=== PATIENT | female | born 1975 | race Caucasian/White ===

== ENCOUNTER 2016-08-27 20:32 | Emergency (ER) | payer MEDICAID ==
[~2016-08-27] VITALS: Ht 157.5 cm; Wt 91.5 kg
[2016-08-27 21:05] VITALS: Ht 157.5 cm; Wt 91.5 kg
[2016-08-27] MEDS ORDERED: KETOROLAC 30 MG INJ IV STA (22:20)
[2016-08-27] MEDS ORDERED: SOD CHLORIDE 0.9% 1,000 ML IV STA (22:20)
[2016-08-27] MEDS ORDERED: FAMOTIDINE 20 MG INJ IV STA (22:20)
[2016-08-27] MEDS ORDERED: ONDANSETRON 4 MG INJ IV STA (22:20)
[2016-08-27 22:53] LABS: ADD SCAN DIFF NO
[2016-08-27 22:55] LABS: BASOPHILS % 0.2 % (0.0-2.0); EOSINOPHILS # 0.2 10^3/ul (0.0-0.5); EOSINOPHILS % 2.8 % (0.0-7.0); HEMATOCRIT 37.8 % (37.0-47.0); HEMOGLOBIN 12.2 g/dl (12.0-16.0); LYMPHOCYTES # 3.1 10^3/ul (0.8-2.9); LYMPHOCYTES % 38.3 % (15.0-51.0); MEAN CORPUSCULAR HEMOGLOBIN 28.3 pg (29.0-33.0); MEAN CORPUSCULAR HGB CONC 32.3 g/dl (32.0-37.0); MEAN CORPUSCULAR VOLUME 87.7 fl (82.0-101.0); MEAN PLATELET VOLUME 9.6 fl (7.4-10.4); MONOCYTE # 0.8 10^3/ul (0.3-0.9); MONOCYTES % 9.5 % (0.0-11.0); NEUTROPHILS % 48.6 % (39.0-77.0); PLATELET COUNT 260 10^3/UL (140-415); RED BLOOD COUNT 4.31 10^6/ul (4.20-5.40); RED CELL DISTRIBUTION WIDTH 13.7 % (11.5-14.5); WHITE BLOOD COUNT 8.2 10^3/ul (4.8-10.8)
[2016-08-27 23:16] LABS: ADD UMIC YES; URINE BILIRUBIN (Dip) NEGATIVE (NEGATIVE); URINE BLOOD (Dip) 1+ (NEGATIVE); URINE COLOR LT. YELLOW (YELLOW); URINE GLUCOSE (Dip) NEGATIVE (NEGATIVE); URINE KETONES (Dip) NEGATIVE (NEGATIVE); URINE LEUKOCYTE ESTERASE (Dip) 2+ (NEGATIVE); URINE NITRITE (Dip) NEGATIVE (NEGATIVE); URINE TOTAL PROTEIN (Dip) NEGATIVE (NEGATIVE); URINE UROBILINOGEN (Dip) 0.2 E.U./dL (0.1-1.0)
[2016-08-27] MEDS ORDERED: morphine 4 MG/ML VIAL IV STA (23:17)
[2016-08-27 23:27] LABS: ALBUMIN 4.2 g/dl (3.3-4.9); ALBUMIN/GLOBULIN RATIO 1.23; BILIRUBIN,INDIRECT 0.1 mg/dl (0-1.1); BILIRUBIN,TOTAL 0.1 mg/dl (0.2-1.3); CALCIUM 9.6 mg/dl (8.4-10.2); CREATININE 0.75 mg/dl (0.44-1.00); POTASSIUM 3.9 mmol/L (3.5-5.1); TOTAL PROTEIN 7.6 g/dl (6.1-8.1)
[2016-08-27 23:46] LABS: SQUAMOUS EPITHELIAL CELL,UR MODERATE
[2016-08-27 23:48] LABS: BACTERIA,URINE FEW
[2016-08-28] MEDS ORDERED: CEFTRIAXONE 1 GM/50 ML (PMX) 50 ML IVPB ONE (00:30)
--- NOTE | 2016-08-28 01:14 | RADRPT ---
PROCEDURE: CT Abdomen and pelvis without contrast. CLINICAL INDICATION: Abdominal pain. TECHNIQUE: CT scan of the abdomen and pelvis was performed on a multi-detector high-resolution CT scanner. Contiguous axial images were obtained from the lung bases to the ischial tuberosities wit hout intravenous contrast. Coronal and sagittal reformatted images were also obtained. Images were reviewed on the PACS workstation. One or more of the following dose reduction techniques were used: - Automated exposure control. - Adjustment of the mA and/or kV according to patient size. - Use of iterative reconstruction technique. Exam CTD/vol = 19.74 mGy. Total exam DLP = 1113.92 mGy-cm. COMPARISON: None. FINDINGS: Evaluation of the lung bases demonstrates no pleural or parenchymal disease. Abdomen: The liver is normal in size. There is no focal mass or dilatation of the biliary tree. T he gallbladder is not distended. The spleen, pancreas and bilateral adrenal glands are within vincent l limits. Bilateral kidneys are normal in size with no contour deforming mass identified. There is no radiopaque renal or ureteral calculus identified. There is no hydronephrosis or hydroureter. T here is no retroperitoneal adenopathy. The abdominal aorta is of normal caliber. There is no abnormal bowel wall thickening or distension. There is no bowel obstruction or free air . A normal appendix is identified. There is no diverticulosis or diverticulitis. There is no asci tiera. Pelvis: The bladder is unremarkable. The uterus and adnexa are within normal limits. There is no significant pelvic adenopathy or free fluid. Evaluation of the osseous structures demonstrates no suspicious lytic or blastic lesion. IMPRESSION: No acute abnormality identified within the abdomen and pelvis. .Murphy Conner MD, MD Date Time Electronically viewed and signed by .Murphy Conner MD, MD on 08/28/2016 01:14 .T/
--- NOTE | 2016-08-28 01:18 | ERD ---
ER Documentation Chief Complaint Date/Time DATE: 08/28/16 TIME: 01:16 Chief Complaint llq ap 8/10 x 3 days with nausea HPI This is a 40-year-old female who presents to the emergency room for evaluation of abdominal pain for the past 3 days. The patient states that she is also feeling nauseous. She localizes the abdominal pain to the left portion of abdomen and describes as achy pain with with no aggravating or relieving factors. The patient denies any diarrhea or fevers associated with this. She states she was nauseous but denies any vomiting. The patient came to the ER for evaluation per ROS All systems reviewed and are negative except as per history of present illness. Medications Home Meds No Active Prescriptions or Reported Meds Allergies Allergies: Coded Allergies: No Known Drug Allergy (Verified Allergy, Unknown, 08/27/16) PMhx/Soc Medical and Surgical Hx: pt denies Medical Hx, pt denies Surgical Hx Hx Alcohol Use: No Hx Substance Use: No Hx Tobacco Use: No Physical Exam Vitals Vital Signs Date Time Temp Pulse Resp B/P Pulse Ox O2 Delivery O2 Flow Rate FiO2 08/27/16 23:56 98.2 71 16 115/70 100 Room Air 08/27/16 21:05 99.2 66 17 127/80 100 Physical Exam INITIAL VITAL SIGNS: Reviewed by me GENERAL: The patient is well developed and appropriate for usual state of health in no apparent distress HEENT: Pupils equal, round, and reactive to light. EOMI. There is no scleral icterus. NECK: C-spine is soft and supple, there is no meningismus. There is no cervical lymphadenopathy. LUNGS: Clear to auscultation bilaterally. There are no rales, wheezes or rhonchi. HEART: Regular rate and rhythm, no murmurs, clicks, rubs or gallops. ABDOMEN: Tender to palpation in the left lower quadrant, otherwise soft, non- tender, non-distended. There are bowel sounds in all four quadrants. No rebound or guarding. EXTREMITIES: There is no peripheral cyanosis or edema. No focal swelling or erythema. NEUROLOGICAL: The patient moves all four extremities with 5/5 strength. Cranial nerves II - XII are intact. Normal gait. Alert and oriented SKIN: There is no apparent rash or petechiae. HEME/LYMPHATIC: There is no evidence of excessive bruising or lymphedema. PSYCHIATRIC: The patient does not appear anxious or depressed. Result Diagram: 08/27/16222908/27/162229 Results 24 hrs Laboratory Tests Test 08/27/16 22:30 White Blood Count 8.210^3/ul Red Blood Count 4.3110^6/ul Hemoglobin 12.2g/dl Hematocrit 37.8% Mean Corpuscular Volume 87.7fl Mean Corpuscular Hemoglobin 28.3pg Mean Corpuscular Hemoglobin Concent 32.3g/dl Red Cell Distribution Width 13.7% Platelet Count 85298^3/UL Mean Platelet Volume 9.6fl Neutrophils % 48.6% Lymphocytes % 38.3% Monocytes % 9.5% Eosinophils % 2.8% Basophils % 0.2% Nucleated Red Blood Cells % 0.0/100WBC Neutrophils # 4.010^3/ul Lymphocytes # 3.110^3/ul Monocytes # 0.810^3/ul Eosinophils # 0.210^3/ul Basophils # 0.010^3/ul Nucleated Red Blood Cells # 0.010^3/ul Urine Color LT. YELLOW Urine Clarity CLEAR Urine pH 6.5 Urine Specific Kremlin 1.020 Urine Ketones NEGATIVE Urine Nitrite NEGATIVE Urine Bilirubin NEGATIVE Urine Urobilinogen 0.2 E.U./dL Urine Leukocyte Esterase 2+ Urine Microscopic RBC 5-10/HPF Urine Microscopic WBC 10-25/HPF Urine Squamous Epithelial Cells MODERATE Urine Bacteria FEW Urine Yeast FEW Urine Hemoglobin 1+ Urine Glucose NEGATIVE% Urine Total Protein NEGATIVE Sodium Level 136mmol/L Potassium Level 3.9mmol/L Chloride Level 102mmol/L Carbon Dioxide Level 26mmol/L Anion Gap 12 Blood Urea Nitrogen 17mg/dl Creatinine 0.75mg/dl Glucose Level 100mg/dl Calcium Level 9.6mg/dl Total Bilirubin 0.1mg/dl Direct Bilirubin 0.00mg/dl Indirect Bilirubin 0.1mg/dl Aspartate Amino Transf (AST/SGOT) 30IU/L Alanine Aminotransferase (ALT/SGPT) 43IU/L Alkaline Phosphatase 77IU/L Total Protein 7.6g/dl Albumin 4.2g/dl Globulin 3.40g/dl Albumin/Globulin Ratio 1.23 Lipase 131U/L Current Medications Medications (Trade) Dose Ordered Sig/Mikala Route PRN Reason Start Time Stop Time Status Last Admin Dose Admin Sodium Chloride (NS) 1,000 ml @ 1,000 mls/hr Q1H STAT IV 08/27/16 22:20 08/27/16 23:19 DC 08/27/16 22:40 Ondansetron HCl (Zofran Inj) 4 mg ONCE STAT IV 08/27/16 22:20 08/27/16 22:21 DC 08/27/16 22:40 Famotidine (Pepcid Iv) 20 mg ONCE STAT IV 08/27/16 22:20 08/27/16 22:21 DC 08/27/16 22:40 Ketorolac Tromethamine (Toradol) 30 mg ONCE STAT IV 08/27/16 22:20 08/27/16 22:21 DC 08/27/16 22:40 Morphine Sulfate 4 mg 4 mg ONCE STAT IV 08/27/16 23:17 08/27/16 23:18 DC 08/27/16 23:47 Ceftriaxone Sodium (Rocephin) 50 ml @ 100 mls/hr ONCE ONCE IVPB 08/28/16 00:30 08/28/16 00:59 DC 08/28/16 00:54 Procedures/MDM CT abdomen pelvis without: No acute abnormality identified within the abdomen and pelvis. This 40-year-old female presents to the emergency room for evaluation of abdominal pain. When I evaluated her she did have pain in the left lower quadrant of the abdomen. Lab work was obtained including a urinalysis. The patient was afebrile when I evaluated her and I did obtain lab work which was normal. Urinalysis does show positive leukocyte esterase. CT of the abdomen and pelvis was also obtained which does not show any acute intra-abdominal pathology. The patient was given Toradol morphine for pain control. She was given 1 g of Rocephin for acute cystitis. The patient states that she is feeling better at this time. She will be discharged home at this time with a prescription for ciprofloxacin for acute cystitis. Differential diagnoses entertained was broad with potential high acuity. Patient has been evaluated for appendicitis, cholecystitis, and other high risk medical and surgical causes of abdominal pain. Ultimately the patient's evaluation is nondiagnostic. Based on the patient's lack of risk factors, as well as the patient's clinical, laboratory, and imaging data, the patient appears to be low risk for these high risk causes of abdominal pain. Departure Diagnosis: Primary Impression: Abdominal pain Additional Impression: UTI (urinary tract infection) Condition: Stable ZECHARIAH ORTA DO August 28, 2016 01:18
[2016-08-28] MEDS ORDERED: CIPR500T4 PO (01:19)
[2016-08-28 01:27] VITALS: BP 114/76; PULSE 67; RESP 16; TEMP 98.2
== END 2016-08-28 01:27 | disposition home or self-care (01) ==
LOC: FTE 20:32 → E/R 08-28 01:27
DX: R10.9 Unspecified abdominal pain (principal); N39.0 Urinary tract infection, site not specified
CPT/HCPCS: 36415; 74176; 80053; 81001; 81003; 83690; 85025; 96374; 96375; J0696; J1885; J2270; J2405; J7030; Z7502; Z7610

== ENCOUNTER 2017-04-07 20:31 | Emergency (ER) | payer MEDICAID ==
[~2017-04-07] VITALS: Ht 162.6 cm; Wt 89.7 kg
[~2017-04-07 20:31] MED LIST: CIPR500T4 PO
[2017-04-07 20:38] VITALS: Ht 162.6 cm; Wt 89.7 kg
[2017-04-08] MEDS ORDERED: ONDANSETRON (ODT) 4 MG TAB ODT STA (01:29)
[2017-04-08] MEDS ORDERED: LIDOCAINE/MYLANTA 40 ML BTL PO ONE (01:30)
--- NOTE | 2017-04-08 01:32 | ERD ---
ER Documentation Chief Complaint Chief Complaint left sided abd pain x3 days HPI 41-year-old female who presents emergency department for left-sided abdominal pain for 3 days. Denies headache, dizziness, blurry vision, neck pain, shoulder pain, chest pain, back pain, nausea, vomiting, diarrhea, constipation, loss of bowel bladder control, or possibility , urinary symptoms, vaginal bleeding or vaginal discharge, being sexually active, recent long travel, recent travel, recent antibiotic use in the last 3 months, recent exposure to any illness, fever, chills, difficulty walking. LMP: 3 weeks ago. A0. ROS All systems reviewed and are negative except as per history of present illness. Medications Home Meds Active Scripts Acetaminophen* (Tylophen*) 500 Mg Capsule, 1 CAP PO Q6H Y for PAIN AND OR ELEVATED TEMP, #20 CAP Prov:BLAINEANNA Mead 04/08/17 Ondansetron Hcl* (Zofran*) 4 Mg Tablet, 4 MG PO Q8H Y for NAUSEA AND/OR VOMITING , #30 TAB Prov:BLAINEANNA Mead 04/08/17 Famotidine* (Pepcid*) 20 Mg Tablet, 40 MG PO DAILY for 30 Days, TAB Prov:TERESAILABANANNA F 04/08/17 Ciprofloxacin Hcl* (Ciprofloxacin Hcl*) 500 Mg Tablet, 500 MG PO BID for 7 Days , TAB Prov:ZECHARIAH ORTA DO 08/28/16 Allergies Allergies: Coded Allergies: No Known Drug Allergy (Verified Allergy, Unknown, 08/27/16) PMhx/Soc Medical and Surgical Hx: pt denies Medical Hx, pt denies Surgical Hx Hx Alcohol Use: No Hx Substance Use: No Hx Tobacco Use: No Physical Exam Vitals Vital Signs Date Time Temp Pulse Resp B/P Pulse Ox O2 Delivery O2 Flow Rate FiO2 04/08/17 04:29 98.1 64 20 119/79 100 Room Air 04/07/17 20:38 98.7 84 20 131/76 99 Physical Exam Const: Well-appearing. Not in respiratory or acute distress. Head: Atraumatic Eyes: Normal Conjunctiva ENT: Normal External Ears, Nose and Mouth. Neck: Full range of motion..~ No meningismus. Resp: Clear to auscultation bilaterally Cardio: Regular rate and rhythm, no murmurs Abd: Soft, non tender, non distended. Normal bowel sounds. There is no right upper/right lower/epigastric/left upper/left lower abdominal tenderness on light and deep palpation. Able to jump 10 times without developing abdominal pain. Negative on Rovsing sign. Negative on psoas sign. Negative on Hugo sign (she will check test). Skin: No petechiae or rashes Back: No midline or flank tenderness Ext: No cyanosis, or edema Neur: Awake and alert Psych: Normal Mood and Affect Result Diagram: 04/08/1713904/08/17 014 Results 24 hrs Laboratory Tests Test 04/08/17 01:40 White Blood Count 8.710^3/ul Red Blood Count 4.5510^6/ul Hemoglobin 12.9g/dl Hematocrit 38.0% Mean Corpuscular Volume 83.5fl Mean Corpuscular Hemoglobin 28.4pg Mean Corpuscular Hemoglobin Concent 33.9g/dl Red Cell Distribution Width 13.8% Platelet Count 11420^3/UL Mean Platelet Volume 9.3fl Neutrophils % 53.8% Lymphocytes % 35.8% Monocytes % 7.4% Eosinophils % 2.0% Basophils % 0.3% Nucleated Red Blood Cells % 0.0/100WBC Neutrophils # 4.710^3/ul Lymphocytes # 3.110^3/ul Monocytes # 0.610^3/ul Eosinophils # 0.210^3/ul Basophils # 0.010^3/ul Nucleated Red Blood Cells # 0.010^3/ul Urine Color COLORLESS Urine Clarity CLEAR Urine pH 6.0 Urine Specific Gibson 1.004 Urine Ketones NEGATIVEmg/dL Urine Nitrite NEGATIVEmg/dL Urine Bilirubin NEGATIVEmg/dL Urine Urobilinogen NEGATIVEmg/dL Urine Leukocyte Esterase NEGATIVELeu/ul Urine Hemoglobin NEGATIVEmg/dL Urine Glucose NEGATIVEmg/dL Urine Total Protein NEGATIVEmg/dl Sodium Level 140mmol/L Potassium Level 3.6mmol/L Chloride Level 101mmol/L Carbon Dioxide Level 28mmol/L Anion Gap 15 Blood Urea Nitrogen 12mg/dl Creatinine 0.66mg/dl Glucose Level 95mg/dl Calcium Level 8.9mg/dl Total Bilirubin 0.3mg/dl Direct Bilirubin 0.00mg/dl Indirect Bilirubin 0.3mg/dl Aspartate Amino Transf (AST/SGOT) 39IU/L Alanine Aminotransferase (ALT/SGPT) 51IU/L Alkaline Phosphatase 86IU/L Total Protein 8.0g/dl Albumin 4.2g/dl Globulin 3.80g/dl Albumin/Globulin Ratio 1.10 Amylase Level 84U/L Lipase 128U/L Serum HCG, Qualitative NEGATIVE Current Medications Medications (Trade) Dose Ordered Sig/Mikala Route PRN Reason Start Time Stop Time Status Last Admin Dose Admin Ondansetron HCl (Zofran Odt) 4 mg ONCE STAT ODT 04/08/17 01:29 04/08/17 01:32 DC 04/08/17 01:45 Miscellaneous Medication (Gi Cocktail (2)) 40 ml ONCE ONCE PO 04/08/17 01:30 04/08/17 01:32 DC 04/08/17 01:45 Procedures/MDM Treatment: Zofran ODT. GI cocktail. ED p.o. challenge. Reevaluation: Patient stated that she feels much better this time. Denies headache, neck pain, shoulder pain, chest pain, back pain, abdominal pain. There is no right upper/right lower/epigastric/left upper/left lower abdominal tenderness and light and palpation. Negative on Rovsing sign. Negative on psoas sign. Negative on Hagan sign (heel jar test). No CVA tenderness. Able to jump 5 times without developing abdominal pain. Blood works: Negative. Urinalysis: Negative. Serum : Negative. Differential diagnosis: I have low suspicion for pancreatitis, diverticulitis, appendicitis, abdominal aortic aneurysm due to patient's physical exam that there is no abdominal tenderness and patient's description of pain is not likely I aortic aneurysm Final diagnosis: Gastritis. Prescription: Zofran. Pepcid. Tylenol. Follow-up with PCP in the next 3-4 days. Come back here in the emergency department for any new symptoms or any worsening of symptoms. All questions and concerns are answered. Patient verbalized understanding and agreed with the plan of care. Hemodynamically stable on discharge. Departure Diagnosis: Primary Impression: Gastritis Condition: Stable Additional Instructions: Follow-up with PCP in the next 3-4 days. Come back here in the emergency department for any new symptoms or any worsening of symptoms. All questions and concerns are answered. Patient verbalized understanding and agreed with the plan of care. ANNA VALLADARES Apr 08, 2017 01:32
[2017-04-08 02:18] LABS: BASOPHILS % 0.3 % (0.0-2.0); EOSINOPHILS # 0.2 10^3/ul (0.0-0.5); HEMOGLOBIN 12.9 g/dl (12.0-16.0); LYMPHOCYTES # 3.1 10^3/ul (0.8-2.9); LYMPHOCYTES % 35.8 % (15.0-51.0); MEAN CORPUSCULAR HEMOGLOBIN 28.4 pg (29.0-33.0); MEAN CORPUSCULAR HGB CONC 33.9 g/dl (32.0-37.0); MEAN CORPUSCULAR VOLUME 83.5 fl (82.0-101.0); MEAN PLATELET VOLUME 9.3 fl (7.4-10.4); MONOCYTE # 0.6 10^3/ul (0.3-0.9); MONOCYTES % 7.4 % (0.0-11.0); NEUTROPHIL # 4.7 10^3/ul (1.6-7.5); NEUTROPHILS % 53.8 % (39.0-77.0); PLATELET COUNT 272 10^3/UL (140-415); RED BLOOD COUNT 4.55 10^6/ul (4.20-5.40); RED CELL DISTRIBUTION WIDTH 13.8 % (11.5-14.5); WHITE BLOOD COUNT 8.7 10^3/ul (4.8-10.8)
[2017-04-08 02:42] LABS: ALBUMIN 4.2 g/dl (3.3-4.9); ALBUMIN/GLOBULIN RATIO 1.1; BILIRUBIN,INDIRECT 0.3 mg/dl (0-1.1); BILIRUBIN,TOTAL 0.3 mg/dl (0.2-1.3); CALCIUM 8.9 mg/dl (8.4-10.2); CREATININE 0.66 mg/dl (0.44-1.00); POTASSIUM 3.6 mmol/L (3.5-5.1)
[2017-04-08 02:48] LABS: ADD UMIC NO; UR ASCORBIC ACID NEGATIVE (NEGATIVE); UR BILIRUBIN (Dip) NEGATIVE (NEGATIVE); UR BLOOD (Dip) NEGATIVE (NEGATIVE); UR CLARITY CLEAR (CLEAR); UR COLOR COLORLESS (YELLOW); UR GLUCOSE (Dip) NEGATIVE (NEGATIVE); UR KETONES (Dip) NEGATIVE (NEGATIVE); UR LEUKOCYTE ESTERASE (Dip) NEGATIVE Leu/ul (NEGATIVE); UR NITRITE (Dip) NEGATIVE (NEGATIVE); UR SPECIFIC GRAVITY (Dip) 1.004 (1.003-1.030); UR TOTAL PROTEIN (Dip) NEGATIVE (NEGATIVE); UR UROBILINOGEN (Dip) NEGATIVE (NEGATIVE)
[2017-04-08] MEDS ORDERED: FAMO-96 PO (04:16)
[2017-04-08] MEDS ORDERED: ACET500C5 PO (04:17)
[2017-04-08] MEDS ORDERED: ONDA4TAB8 PO (04:17)
[2017-04-08 04:29] VITALS: BP 119/79; PULSE 64; RESP 20; TEMP 98.1
== END 2017-04-08 04:30 | disposition home or self-care (01) ==
LOC: FTE 20:31
DX: K29.70 Gastritis, unspecified, without bleeding (principal)
CPT/HCPCS: 80053; 81003; 82150; 83690; 84703; 85025; Z7502; Z7610; 99283

== ENCOUNTER 2018-11-17 22:24 | Emergency (ER) | payer MEDICAID ==
[~2018-11-17] VITALS: Ht 162.6 cm; Wt 99.2 kg
[~2018-11-17 22:24] MED LIST changes: +ACET325T33 PO; +ACET500C5 PO; +BACL10TA PO; +FAMO-96 PO; +IBUP-1542 PO; +MED4DP PO; +ONDA4TAB8 PO
[2018-11-17 22:34] VITALS: Ht 162.6 cm; Wt 99.2 kg
[2018-11-18] MEDS ORDERED: KETOROLAC 30 MG INJ IM STA (00:04)
--- NOTE | 2018-11-18 01:17 | ERD ---
ER Documentation Chief Complaint Chief Complaint bilaterial rib pain radiating to upper back x 2 months HPI 42-year-old female presented to ED for bilateral rib pain radiating to her back x2 months. Patient denies any allergies to medications. Patient states this issue has been on and off and cannot pinpoint any triggering factors. Patient denies any traumatic injury. Patient denies shortness of breath. Patient is most concerned that something is going on with her heart. Patient denies fever chills night sweats nausea vomiting. Patient states the pain is off and on and rates it a 5 out of 10. ROS All systems reviewed and are negative except as per history of present illness. Medications Home Meds Active Scripts Methylprednisolone* (Medrol* DOSE PACK) 4 Mg/Dose-Pack Tab.ds.pk, 4 MG PO . DIRECTED for 7 Days, PACKET Prov:BON ENCARNACION PA-C 11/18/18 Ibuprofen* (Motrin*) 600 Mg Tab, 600 MG PO Q6, #30 TAB Prov:BON ENCARNACION PA-C 11/18/18 Acetaminophen* (Tylophen*) 500 Mg Capsule, 1 CAP PO Q6H PRN for PAIN AND OR ELEVATED TEMP, #20 CAP Prov:ANNA VALLADARES 04/08/17 Ondansetron Hcl* (Zofran*) 4 Mg Tablet, 4 MG PO Q8H PRN for NAUSEA AND/OR VOMITING, #30 TAB Prov:ANNA VALLADARES 04/08/17 Famotidine* (Pepcid*) 20 Mg Tablet, 40 MG PO DAILY for 30 Days, TAB Prov:ANNA VALLADARES 04/08/17 Ciprofloxacin Hcl* (Ciprofloxacin Hcl*) 500 Mg Tablet, 500 MG PO BID for 7 Days, TAB Prov:ZECHARIAH ORTA DO 08/28/16 Allergies Allergies: Coded Allergies: No Known Drug Allergy (Verified Allergy, Unknown, 08/27/16) PMhx/Soc History of Surgery: Yes (tonsillectomy) Hx Alcohol Use: No Hx Substance Use: No Hx Tobacco Use: No Smoking Status: Never smoker FmHx Family History: No diabetes, No coronary disease, No other Physical Exam Vitals Vital Signs Date Temp Pulse Resp B/P (MAP) Pulse Ox O2 O2 Flow FiO2 Time Delivery Rate 11/17/18 99.0 81 18 131/75 100 22:34 (93) Physical Exam GENERAL: The patient is well-appearing, well-nourished, in no acute distress HEENT: Atraumatic. Conjunctivae are pink. Pupils equal, round, and reactive to light. There is no scleral icterus. Tympanic membranes clear bilaterally. Oropharynx clear. No nystagmus or photophobia. NECK: C-spine is soft and supple. There is no meningismus. There is no cervical lymphadenopathy. CHEST: Clear to auscultation bilaterally. There are no rales, wheezes or rhonchi. Pain cannot be reproduced with palpation HEART: Regular rate and rhythm. No murmurs, clicks, rubs or gallops. ABDOMEN:Soft, nontender and nondistended. Good bowel sounds. No rebound or guarding. No gross peritonitis. No gross organomegaly or masses. No Dailey sign or McBurney point tenderness. BACK: No midline or flank tenderness. EXTREMITIES: Equal pulses bilaterally. There is no peripheral clubbing, cyanosis or edema. No focal swelling or erythema. Full range of motion. Grossly neurovascularly intact. Results 24 hrs Laboratory Tests Test 11/18/18 00:40 POC Beta HCG, Qualitative NEGATIVE Current Medications Medications Dose Sig/Mikala Start Time Status Last (Trade) Ordered Route PRN Stop Time Admin Dose Reason Admin Ketorolac 30 mg ONCE STAT 11/18/18 DC 11/18/18 Tromethamine IM 00:04 00:45 (Toradol) 11/18/18 00:05 Procedures/MDM ED course: The patient was stable throughout the ED course. The patient and/or family informed of laboratory and diagnostic imaging results throughout the ED course. EKG: Read by Dr. Zavaleta attending physician. EKG shows normal sinus rhythm at rate of 76 No arrhythmias, acute ST elevations or T wave changes were noted. Diagnostic imaging: Read by radiologist Murphy Conner MD, PROCEDURE: Chest. CLINICAL INDICATION: Chest pain. TECHNIQUE: PA and Lateral views of the chest were obtained. COMPARISON: None. FINDINGS: The cardiac silhouette is within normal limits. The aortic arch is unremarkable. There is no focal consolidation, vascular congestion or pleural effusion. There is no pneumothorax. The osseous structures are grossly intact. IMPRESSION: No acute cardiopulmonary process identified. Medications given in ER: Toradol Patient tolerated medication well with no adverse reactions. Patient reported improvement in pain. Medical decision makin-year-old female presenting to the ED for bilateral rib pain x2 months. Patient states the pain comes and goes and she cannot pinpoint any aggravating factors. Patient denies allergies to medications. Patient's physical exam was unremarkable. Patient's vitals were stable and O2 sats 100%. Patient denies s hortness of breath. Patient's EKG and chest x-ray was unremarkable. Patient had no right upper quadrant tenderness with negative Dailey sign. The patient denies dysuria or urinary symptoms. Patient states she recently was treated for UTI and no longer has symptoms. At this time I have low suspicion for acute IA, pneumonia, cholecystitis, Choledocholithiases, kidney stones, pyelonephritis, UTI. Patient remained afebrile and stable during her entire visit ED. The patient was given Toradol and on upon reexamination the patient appears to be doing much better. I advised the patient if symptoms worsen return to ER immediately otherwise she should follow-up with her primary care provider in 1 to 2 days regarding this visit. Patient is in agreement treatment plan and all questions were answered upon discharge Prescription for home: Motrin I have discussed with the patient proper use and common side effects to expert with the medication . I advised the patient/family to speak with the pharmacist dispensing the medication to be advised of any potential drug interactions with other medication or supplements they may be taking. Discharge: At this time, patient is stable for discharge and outpatient management. I have instructed the patient to follow-up with his\her primary care physician in 1 to 2 days. I have discussed with the patient the possibility of needing to see a specialist for further work-up and imaging studies if symptoms persist. I have instructed the patient to promptly return to the ER for any new or worsening symptoms including increased pain, fever, nausea, vomiting, weakness or LOC. The patient and\or family expressed understanding of and agreement with this plan. All questions were answered. Home care instructions were provided. Disclaimer: Inadvertent spelling and grammatical errors are likely due to EHR\dictation software use and do not reflect on the overall quality of patient care. Also, please note that the electronic time recorded on the note does not necessarily reflect the actual time of the patient encounter. Departure Diagnosis: Primary Impression: Rib pain Condition: Stable Patient Instructions: Rib Contusion Referrals: COMMUNITY CLINICS YOU HAVE RECEIVED A MEDICAL SCREENING EXAM AND THE RESULTS INDICATE THAT YOU DO NOT HAVE A CONDITION THAT REQUIRES URGENT TREATMENT IN THE EMERGENCY DEPARTMENT. FURTHER EVALUATION AND TREATMENT OF YOUR CONDITION CAN WAIT UNTIL YOU ARE SEEN IN YOUR DOCTORS OFFICE WITHIN THE NEXT 1-2 DAYS. IT IS YOUR RESPONSIBILITY TO MAKE AN APPOINTMENT FOR FOLOW-UP CARE. IF YOU HAVE A PRIMARY DOCTOR --you should call your primary doctor and schedule an appointment IF YOU DO NOT HAVE A PRIMARY DOCTOR YOU CAN CALL OUR PHYSICIAN REFERRAL HOTLINE AT IF YOU CAN NOT AFFORD TO SEE A PHYSICIAN YOU CAN CHOSE FROM THE FOLLOWING [facility] CLINICS [facility] [address] [facility] [address] [facility] [address] [facility] [address] [facility] [address] [facility] [facility] [address] [facility] [facility] [facility]. [facility] YOU HAVE RECEIVED A MEDICAL SCREENING EXAM AND THE RESULTS INDICATE THAT YOU DO NOT HAVE A CONDITION THAT REQUIRES URGENT TREATMENT IN THE EMERGENCY DEPARTMENT. FURTHER EVALUATION AND TREATMENT OF YOUR CONDITION CAN WAIT UNTIL YOU ARE SEEN IN YOUR DOCTORS OFFICE WITHIN THE NEXT 1-2 DAYS. IT IS YOUR RESPONSIBILITY TO MAKE AN APPOINTMENT FOR FOLOW-UP CARE. IF YOU HAVE A PRIMARY DOCTOR --you should call your primary doctor and schedule and appointment IF YOU DO NOT HAVE A PRIMARY DOCTOR YOU CAN CALL OUR PHYSICIAN REFERRAL HOTLINE AT . IF YOU CAN NOT AFFORD TO SEE A PHYSICIAN YOU CAN CHOSE FROM THE FOLLOWING [facility]: [facility] [place] [address] [place] [address] [facility] [address] [place] [address] FOR[facility]LY [facility] + [facility] [address] [place] [address] Additional Instructions: Call your primary care doctor TOMORROW for an appointment during the next 1-2 da ys.See the doctor sooner or return here if your condition worsens before your appointment time. BON ENCARNACION PA-C Nov 18, 2018 01:17
[2018-11-18 01:18] VITALS: BP 113/72; PULSE 76; RESP 18
== END 2018-11-18 01:19 | disposition home or self-care (01) ==
LOC: FTE 22:24
DX: R07.81 Pleurodynia (principal)
CPT/HCPCS: 71046; 81025; 93005; 96372; J1885; Z7502

== ENCOUNTER 2018-12-01 15:05 | Emergency (ER) | payer MEDICAID ==
[~2018-12-01] VITALS: Ht 162.6 cm; Wt 96.9 kg
[2018-12-01 15:08] VITALS: BP 117/74; PULSE 87; RESP 18; Ht 162.6 cm; Wt 96.9 kg
[2018-12-01] MEDS ORDERED: KETOROLAC 30 MG INJ IM STA (15:49)
--- NOTE | 2018-12-01 15:51 | ERD ---
ER Documentation Chief Complaint Chief Complaint left leg pain x 1 week; no injury HPI 42-year-old female, previously healthy, presents to the emergency department, complaining of 1 week with worsening of left leg pain. The patient reports a history of a mechanical fall 6 months ago. The patient denies fever, no chills, no rashes, no recent trauma. The pain is dull, intermittent, 6/10. The patient has been taking Tylenol with mild improvement of the symptoms. ROS All systems reviewed and are negative except as per history of present illness. Medications Home Meds Active Scripts Baclofen* (Baclofen*) 10 Mg Tablet, 10 MG PO QHS, #10 TAB Prov:AVERY TAYLOR MD 12/01/18 Acetaminophen* (Tylenol*) 325 Mg Tablet, 2 TAB PO Q6 PRN for PAIN AND OR ELEVATED TEMP, #20 TAB Prov:AVERY TAYLOR MD 12/01/18 Ibuprofen* (Motrin*) 600 Mg Tab, 600 MG PO TID PRN for PAIN AND OR ELEVATED TEMP, #20 TAB Prov:AVERY TAYLOR MD 12/01/18 Methylprednisolone* (Medrol* DOSE PACK) 4 Mg/Dose-Pack Tab.ds.pk, 4 MG PO . DIRECTED for 7 Days, PACKET Prov:BON ENCARNACION PA-C 11/18/18 Ibuprofen* (Motrin*) 600 Mg Tab, 600 MG PO Q6, #30 TAB Prov:BON ENCARNACION PA-C 11/18/18 Acetaminophen* (Tylophen*) 500 Mg Capsule, 1 CAP PO Q6H PRN for PAIN AND OR ELEVATED TEMP, #20 CAP Prov:ANNA VALLADARES 04/08/17 Ondansetron Hcl* (Zofran*) 4 Mg Tablet, 4 MG PO Q8H PRN for NAUSEA AND/OR VOMITING, #30 TAB Prov:ANNA VALLADARES 04/08/17 Famotidine* (Pepcid*) 20 Mg Tablet, 40 MG PO DAILY for 30 Days, TAB Prov:ANNA VALLADARES 04/08/17 Ciprofloxacin Hcl* (Ciprofloxacin Hcl*) 500 Mg Tablet, 500 MG PO BID for 7 Days, TAB Prov:ZECHARIAH ORTA DO 08/28/16 Allergies Allergies: Coded Allergies: No Known Drug Allergy (Verified Allergy, Unknown, 08/27/16) PMhx/Soc History of Surgery: Yes (tonsillectomy) Hx Alcohol Use: No Hx Substance Use: No Hx Tobacco Use: No Smoking Status: Unknown if ever smoked FmHx Family History: No diabetes, No coronary disease Physical Exam Vitals Vital Signs Date Temp Pulse Resp B/P (MAP) Pulse Ox O2 O2 Flow FiO2 Time Delivery Rate 12/01/18 99.1 87 18 117/74 99 15:08 (88) Physical Exam Const: No acute distress Head: Atraumatic Eyes: Normal Conjunctiva ENT: Normal External Ears, Nose and Mouth. Neck: Full range of motion. No meningismus. Resp: Clear to auscultation bilaterally Cardio: Regular rate and rhythm, no murmurs Abd: Soft, non tender, non distended. Normal bowel sounds Skin: No petechiae or rashes Back: No midline or flank tenderness Ext: Left lower extremity: Normal inspection, full range of motion, no edema, no rashes, no cyanosis Neur: Awake and alert Psych: Normal Mood and Affect Results 24 hrs Laboratory Tests Test 12/01/18 15:59 POC Beta HCG, Qualitative NEGATIVE Current Medications Medications Dose Sig/Mikala Start Time Status Last (Trade) Ordered Route PRN Stop Time Admin Dose Reason Admin Ketorolac 30 mg ONCE STAT 12/01/18 DC 12/01/18 Tromethamine IM 15:49 12/01/18 16:00 (Toradol) 15:53 Procedures/MDM Acute right hip pain: no red flags. Differential diagnosis include but not limited to: Hip contusion, tendon/ligament injury, arthritis; low suspicion for fracture, DVT, dislocation, septic arthritis. Neurovascular exam grossly intact. no clinical findings suggestive of acute infectious process, no acute deformity, no edema, no rashes. Physical examination and clinical presentation consistent most likely with left lower extremity pain. During the ED course the patient received treatment with Toradol presenting overall improvement of the symptoms. Results and clinical impression discussed with the patient who agrees with management. The patient is stable to be treated outpatient and will be discharged home with recommendations for ice, rest, NSAIDs 3 times daily for 5 days and close monitoring. The patient was instructed to follow up with the primary care provider in the next 48h. If symptoms persist, worsen or new symptoms develop, then patient should return to the ED immediately. Instructions explained and given to patient with acknowledgment and demonstrated understanding. Disclaimer: Inadvertent spelling and grammatical errors are likely due to EHR/dictation software use and do not reflect on the overall quality of patient care. Also, please note that the electronic time recorded on this note does not necessarily reflect the actual time of the patient encounter. Departure Diagnosis: Primary Impression: Left hip pain Additional Impression: Left knee pain Condition: Stable Additional Instructions: Muchas constance por [facility] para levin servicio. Esperamos que en levin visita a la nila de emergencia levin problema medico haya sido solucionado y que se sienta mucho mejor. Para estar seguros que levin mejoria sigue en proceso, le pedimos el favor de hacer gracie shoaib de seguimiento medico con levin doctor primario en los proximos 2-4 perrin. Lleve con usted estos documentos y las medicinas recetadas. Si nitza sintomas empeoran, NO SE ESPERE, por favor regrese a nila de emergencia INMEDIATAMENTE. En osman que usted no tenga un mdico de atencin primaria: Llame al mdico o clnica comunitaria de referencia que aparece abajo krystal las horas de consultorio para hacer gracie shoaib para que le vean. CLINICAS: [facility] [id number] [facility] [id number] [facility] [id number] [facility] [id number] [place] [phone] [facility]. [phone] [place] Dec 01, 2018 15:51
== END 2018-12-01 17:35 | disposition home or self-care (01) ==
LOC: FTE 15:05
DX: M25.562 Pain in left knee (principal); M25.552 Pain in left hip
CPT/HCPCS: 73510; 73562; 81025; 96372; J1885; Z7502; 73501